=== PATIENT | male | born 1985 | race Caucasian/White ===

== ENCOUNTER 2016-10-15 23:39 | Emergency (ER) | payer OTHER ==
[~2016-10-15 23:39] MED LIST: ACULAR10 ML OD; FLOXIN10 ML OT; LORTAB 5/500 TA1 TA1 PO; VICODIN PO
== END 2016-10-16 01:29 | disposition home or self-care (01) ==
LOC: CED 23:39
DX: S61.211A Laceration without foreign body of left index finger without damage to nail, initial encounter (principal); F17.210 Nicotine dependence, cigarettes, uncomplicated; W45.8XXA Other foreign body or object entering through skin, initial encounter; Y92.098 Other place in other non-institutional residence as the place of occurrence of the external cause
CPT/HCPCS: 12001; 99283